=== PATIENT | female | born 1990 | race African-American/Black ===

== ENCOUNTER 2022-04-09 09:05 | Day surgery (SDC) | payer OTHER ==
[2022-04-09] MEDS ORDERED: hydrALAZINE 20 MG/ML VIAL SLOW IVP PRN (10:17)
[2022-04-09] MEDS ORDERED: Acetaminophen 500 MG TAB PO SCH (10:30)
[2022-04-09 12:28] LABS: Bilirubin Neg (Negative); Blood, Urine Negative (Negative); Clarity Slightly Cloudy (Clear); Glucose, Urine (Dipstick) Normal (Negative); Ketone, Urine Negative (Negative); Leukocyte 100 (Negative); Nitrite Negative (Negative); Protein, Urine (Dipstick) Negative (Neg-Trace); Specific Gravity, Urine 1.005 (1.002-1.036); Urobilinogen Normal mg/dL (Less than 2)
[2022-04-09 12:45] LABS: RBC/HPF 0-3 HPF (0-3)
[2022-04-09 12:46] LABS: Bacteria/HPF 3+ HPF (None Seen); Mucous/LPF 1+ LPF (<2+); Yeast-Budding 1+ HPF (None Seen)
[2022-04-09 13:44] LABS: Bilirubin Neg (Negative); Blood, Urine Negative (Negative); Clarity Clear (Clear); Glucose, Urine (Dipstick) Normal (Negative); Ketone, Urine Negative (Negative); Leukocyte Negative (Negative); Nitrite Negative (Negative); Protein, Urine (Dipstick) 15 mg/dl (Neg-Trace); Specific Gravity, Urine 1.015 (1.002-1.036); Urobilinogen Normal mg/dL (Less than 2); pH, Urine 6.5 (5.0-9.0)
[2022-04-09 13:54] LABS: RBC/HPF None Seen HPF (0-3)
== END 2022-04-09 14:15 | disposition home or self-care (01) ==
LOC: CSHLD/OP 09:05
PROVIDERS: ATTEND Obstetrics & Gynecology
DX: O26.893 Other specified pregnancy related conditions, third trimester (principal); R10.2 Pelvic and perineal pain; O09.213 Supervision of pregnancy with history of pre-term labor, third trimester; Z3A.33 33 weeks gestation of pregnancy; Z88.8 Allergy status to other drugs, medicaments and biological substances
CPT/HCPCS: 81001

== ENCOUNTER 2022-04-25 20:34 | Day surgery (SDC) | payer OTHER ==
[2022-04-25 21:07] VITALS: BMI 32.7
[2022-04-25] MEDS ORDERED: hydrALAZINE 20 MG/ML VIAL SLOW IVP PRN (21:48)
== END 2022-04-25 22:10 | disposition home or self-care (01) ==
LOC: CSHLD/OP 20:34
PROVIDERS: ATTEND Family Medicine
DX: O47.03 False labor before 37 completed weeks of gestation, third trimester (principal); Z3A.36 36 weeks gestation of pregnancy
CPT/HCPCS: 99283

== ENCOUNTER 2022-04-30 23:38 | Inpatient (IN) | payer BC, OTHER ==
[2022-04-30 23:59] VITALS: BMI 33.0
[2022-05-01] MEDS ORDERED: hydrALAZINE 20 MG/ML VIAL SLOW IVP PRN ×3 (00:32→11:38)
[2022-05-01] MEDS ORDERED: Ibuprofen 800 MG TAB PO PRN (02:23)
[2022-05-01] MEDS ORDERED: Butorphanol Tartrate 1 MG/ML VIAL SLOW IVP PRN (02:23)
[2022-05-01] MEDS ORDERED: Acetaminophen 500 MG TAB PO PRN (02:23)
[2022-05-01] MEDS ORDERED: HYDROcodone/Acetaminophen 5/325 mg Tablet PO PRN ×3 (02:23→11:38)
[2022-05-01] MEDS ORDERED: Lidocaine 1% (PF) 30 ML VIAL SC PRN (02:23)
[2022-05-01] MEDS ORDERED: Promethazine HCl 25 MG/ML VIAL IM PRN ×3 (02:23→11:38)
[2022-05-01] MEDS ORDERED: Ondansetron PF 4 MG/2 ML Vial IVP PRN ×3 (02:23→11:38)
[2022-05-01] MEDS ORDERED: Lactated Ringer's 1,000 ML IV SCH ×2 (02:30)
[2022-05-01] MEDS ORDERED: NS w/ Oxytocin 30 units 500 ML IV SCH ×2 (02:30)
[2022-05-01] MEDS ORDERED: Penicillin G Potassium 5 MILL.UNITS in Sodium Chloride 0.9% 100 ML IVPB SCH (02:30)
[2022-05-01 02:50] LABS: Hemoglobin 11.8 g/dL (12.0-15.5); Mean Corpuscular HGB CONC 35.3 g/dL (32.0-36.0); Mean Corpuscular Hemoglobin 29.7 pg (27.0-33.0); Mean Corpuscular Volume 84.1 fl (81.6-98.3); Mean Platelet Volume 11.7 fl (7.4-10.4); Platelet Count 269 10x3/uL (150-450); RBC Distribution Width 12.4 % (11.5-14.5); Red Blood Cell (RBC) Count 3.97 10x6/uL (3.90-5.03); White Blood Cell (WBC) Count 10.4 10x3/uL (3.5-10.5)
[2022-05-01] MEDS ORDERED: Penicillin G Potassium 5 MILL.UNITS VIAL ONE (02:52)
[2022-05-01] MEDS ORDERED: Fentanyl 2 mcg/Bup 0.1% Cadd 100 ML ONE (03:01)
[2022-05-01 04:03] LABS: Hep B Surf Ag Non-Reactive S/CO (NonReactive); Syphilis Antibody Nonreactive (Nonreactive); Syphilis Antibody Index 0.06 S/CO (<1.00 Non-Reactive)
[2022-05-01 04:27] LABS: SARS-CoV-2 NAA Rapid Test Not Detected (NotDetected)
[2022-05-01] MEDS ORDERED: Acetaminophen 325 MG TAB PO PRN (04:57)
[2022-05-01] MEDS ORDERED: ePHEDrine Sulfate 50 MG/10 ML VIAL SLOW IVP PRN (04:57)
[2022-05-01] MEDS ORDERED: diphenhydrAMINE 50 MG/ML VIAL IVP PRN (04:57)
[2022-05-01] MEDS ORDERED: Moisturizing Cream (Eucerin) 113 GM JAR TOP PRN (04:57)
[2022-05-01] MEDS ORDERED: Naloxone HCl 0.4 mg/ml Vial IVP PRN ×2 (04:57)
[2022-05-01] MEDS ORDERED: Fentanyl 2 mcg/Bupivacaine 0.1% Cassette 100 ML EPIDURAL SCH (05:00)
[2022-05-01] MEDS ORDERED: Communication Order-Pharmacy FS SCH (05:00)
[2022-05-01] MEDS ORDERED: Lactated Ringer's 500 ML IV PRN (05:12)
[2022-05-01] MEDS: Penicillin G 2.5 MILL.units 2.5 MILL.UNITS in Premix Bag 1 BAG IVPB SCH ×2 (06:42→16:06)
[2022-05-01] MEDS ORDERED: Bupivacaine/Epinephrine 0.25% 30 ML VIAL ONE (08:00)
[2022-05-01] MEDS ORDERED: Lidocaine 2% MPF 10 ML AMP (For Epidural Use) ONE (08:00)
[2022-05-01] MEDS ORDERED: Fentanyl 100 MCG/2 ML VIAL ONE (08:43)
[2022-05-01] MEDS ORDERED: Boostrix 0.5 ML (Tdap) VIAL IM ONE (11:38)
[2022-05-01] MEDS ORDERED: Milk Of Magnesia 30 ML UDCUP PO PRN (11:38)
[2022-05-01] MEDS ORDERED: Benzocaine-Menthol 82.5 ML CAN TOP PRN (11:38)
[2022-05-01] MEDS ORDERED: Lanolin Ointment 7 GM TUBE TOP PRN (11:38)
[2022-05-01] MEDS ORDERED: diphenhydrAMINE 25 MG CAP PO PRN (11:38)
[2022-05-01] MEDS ORDERED: Bisacodyl 10 MG SUPP PR PRN (11:38)
[2022-05-01] MEDS: Ibuprofen 800 MG TAB PO SCH ×3 (11:49→19:34)
[2022-05-01] MEDS: Ferrous Sulfate 325 MG TAB PO SCH (14:17)
[2022-05-02] MEDS: Ibuprofen 800 MG TAB PO SCH ×3 (05:06→21:15)
[2022-05-02] MEDS: Docusate 100 MG CAP PO SCH ×3 (09:20→21:15)
[2022-05-02] MEDS: Ferrous Sulfate 325 MG TAB PO SCH ×2 (09:21→18:06)
[2022-05-02] MEDS: Prenatal Vitamin 1 TAB PO SCH (09:21)
[2022-05-03] MEDS: Ibuprofen 800 MG TAB PO SCH (05:06)
[2022-05-03] MEDS: Docusate 100 MG CAP PO SCH (08:13)
[2022-05-03] MEDS: Ferrous Sulfate 325 MG TAB PO SCH (08:13)
[2022-05-03] MEDS: Prenatal Vitamin 1 TAB PO SCH (08:13)
[2022-05-03 09:27] VITALS: BP 119/77; TEMP 98
== END 2022-05-03 12:17 | disposition home or self-care (01) | DRG 807 ==
LOC: CSHLD/OP 23:38 → CSHLD 05-01 02:10 → CSHANTE 05-01 12:45 → CSHPP 05-01 17:36
PROVIDERS: ADMIT Family Medicine; ATTEND Family Medicine
PROC: 10E0XZZ Delivery of Products of Conception, External Approach (ICD-10-PCS; principal; 2022-05-01)
PROC: 10907ZC Drainage of Amniotic Fluid, Therapeutic from Products of Conception, Via Natural or Artificial Opening (ICD-10-PCS; 2022-05-01)
DX: O60.14X0 Preterm labor third trimester with preterm delivery third trimester, not applicable or unspecified (principal); Z37.0 Single live birth; O99.824 Streptococcus B carrier state complicating childbirth; Z3A.35 35 weeks gestation of pregnancy; Z20.822 Contact with and (suspected) exposure to COVID-19; Z88.8 Allergy status to other drugs, medicaments and biological substances; O77.0 Labor and delivery complicated by meconium in amniotic fluid
CPT/HCPCS: 36415; 51702; 85027; 86780; 86850; 86900; 86901; 87340; 99285; J2540; J2590; J3490; U0002